=== PATIENT | male | born 1955 | race Caucasian/White ===

== ENCOUNTER 2016-10-08 00:52 | Observation (INO) | payer OTHER ==
--- NOTE | 2016-10-08 01:01 | EDPHY ---
[id number] HISTORY OF PRESENT ILLNESS: 61-year-old male presents to the emergency department by ambulance feeling extremely dizzy and lightheaded feeling like he is going to pass out. The patient was seen in [place] few days ago for spontaneous headache. He was diagnosed with an intracranial bleed. He was kept in the ICU for 2 days and then discharged home. He arrived home yesterday. He has had a continuous headache since that time. He feels that the headache today is a a bit better than it was a few days ago although still continues to have a headache. The patient states that he developed abrupt onset of feeling dizzy and lightheaded and felt like he was going to pass out. He then lost his balance and then fell hitting the right side of his head. He sustained a laceration to the right eyebrow. He continues to describe headache. Denies neck or back pain. Denies chest pain or difficulty breathing. Denies abdominal pain. Denies injury to upper or lower extremities. The patient has had chronic diarrhea since July. He has a history of colon cancer and is currently undergoing chemotherapy. His last infusion of chemotherapy was 2 weeks ago. He has had chronic diarrhea since his partial bowel resection over 2 months ago. REVIEW OF SYSTEMS: Constitutional: No fever, no chills. Eyes: No double or blurry vision. ENT: No sore throat. Respiratory: No cough, no shortness of breath. Cardiac: No chest pain. Gastrointestinal: Chronic diarrhea. No abdominal pain or vomiting. Genitourinary: No dysuria. Musculoskeletal: No neck or back pain. Skin: No rashes. Neurological: Headache as above, dizziness (Karine Santosrinlesly Moreno) Past Medical/Surgical History: Colon cancer with partial bowel resection currently on chemotherapy. Spontaneous intracranial bleed 5 days ago. History of anemia. (Dionne Santosa Tiffanie) Social History: (Justina Santos) Physical Exam: General Appearance: Alert, no distress. Mentating normally and answering questions appropriately. Eyes: Pupils equal and round. Extraocular motions are all intact. ENT: Mouth: Mucous membranes moist. Respiratory: No wheezing, rhonchi, or rales, lungs are clear to auscultation. Cardiovascular: Regular rate and rhythm. Gastrointestinal: Abdomen is soft and nontender, no masses, no rebound or guarding, bowel sounds normal. Well-healed midline surgical incision noted. Neurological: Alert and oriented x 3, cranial nerves II through XII grossly intact Skin: 2 cm right eyebrow laceration. Warm and dry, no rashes. Musculoskeletal: Nontender to palpate along the cervical, thoracic or lumbar spine. Neck is supple. Extremities: Full range of motion and no peripheral edema. Psychiatric: Patient is oriented X 3, there is no agitation. (Justina Santos) Constitutional: Initial Vital Signs Temperature (C) 37.0 C 10/08/16 00:52 Heart Rate 67 10/08/16 00:52 Respiratory Rate 18 10/08/16 00:52 Blood Pressure 144/71 H 10/08/16 00:52 O2 Sat (%) 93 10/08/16 00:52 O2 Delivery Mode Nasal Cannula O2 (L/minute) 2 Allergies/Adverse Reactions: Shellfish *RETIRED-06/17/12 [Shellfish] Allergy (Intermediate, Verified 06:57) Home Medications: Medication Instructions Recorded Acetaminophen/Codeine 300/30Mg 1 - 2 each PO Q4 PRN 10/08/16 [Tylenol #3 (*)] Diphenoxylate HCl/Atrop Sulf 1 tab PO QID PRN 10/08/16 [Lomotil Tab (*)] Multivitamins [Multivitamin (*)] 1 each PO DAILY 10/08/16 [place]-3 Fatty Acids [Fish Oil 1000 1,000 mg PO DAILY 10/08/16 mg (*)] Phenelzine Sulfate [Nardil 15 mg] 45 mg PO BID@08,12 10/08/16 levETIRAcetam [Keppra 500 mg (*)] 500 mg PO BID 10/08/16 traMADol [Ultram 50 mg (*)] 50 mg PO Q6 PRN 10/08/16 Medical Decision Making - Diagnostics Imaging: CT imaging of the brain reveals right frontal hemorrhage measuring 4.1 x 4.1 cm with surrounding edema. Including the edema it measures 6.6 x 6.6 cm. There is minimal shift, 6 mm. (Justina Santos) Procedures: Laceration repair. Verbal consent was obtained from the patient. The 1.5 cm laceration on the right eyebrow was anesthetized using 1% lidocaine with epinephrine. The wound was irrigated with saline, draped and explored to its base with a gloved finger. There were no deep structures involved. The wound was repaired with 6 0 Prolene, 5 sutures. The wound repair was simple. The procedure was performed by myself. (Justina Santos) ED Course/Re-evaluation: 61-year-old male presents to the emergency department after he felt dizzy and had a near syncopal episode, lost his balance and then fell hitting the right side of his face. He sustained a laceration to the right eyebrow which was repaired, see procedure note. Patient has a history of intracranial bleed to the right frontal lobe that was diagnosed just a few days ago in [place]. He was admitted to the ICU for 2 days and then discharged. They drove back home yesterday and today developed the above symptoms. CT imaging of the brain reveals right frontal bleed measuring 4.1 x 4.1 cm with surrounding edema and small shift, 6 mm of shift. I spoke with Dr. Boyd regarding this patient. He will be admitted to the ICU. I did speak with the [facility] physician and then made them aware that he will be kept at [facility] since he is unstable to transfer. I also spoke with the on-call hospitalist, Dr. Arce who will consult on this patient. (Justina Santos) Differential Diagnosis: Head injury including but not limited to concussion, skull fracture, intraparenchymal contusion, subarachnoid, subdural and epidural hematoma. Dizziness including but not limited to peripheral and central causes of vertigo , orthostatic causes including dehydration, and blood loss. (Justina Santos) - Data Points Laboratory Results: Laboratory Results 10/08/16 01:20 10/08/16 01:20 Medications Given: Discontinued Medications Sodium Chloride (Ns) 1,000 mls @ 0 mls/hr IV ONCE ONE PRN Reason: Wide Open Stop: 10/08/16 01:19 Last Admin: 10/08/16 01:21 Dose: 1,000 mls Levetiracetam 750 mg/ Sodium (Chloride) 107.5 mls @ 420 mls/hr IV BID AKANKSHA Stop: 04/06/17 02:59 Last Admin: 10/08/16 10:35 Dose: Not Given Potassium Chloride/Sodium Chloride (Ns W/ 20 Kcl/L) 1,000 mls @ 100 mls/hr IV CONT AKANKSHA Stop: 04/06/17 02:59 Last Admin: 10/08/16 03:21 Dose: 1,000 mls Sodium Chloride (Ns) 500 mls @ 0 mls/hr IV ONCE ONE PRN Reason: Wide Open Stop: 10/09/16 10:14 Last Admin: 10/09/16 10:52 Dose: 500 mls Levetiracetam (Keppra) 500 mg PO BID AKANKSHA Stop: 04/06/17 09:59 Last Admin: 10/08/16 11:58 Dose: Not Given Morphine Sulfate (Morphine) 1 - 5 mg IVP Q1HR PRN PRN Reason: Pain, Breakthrough Stop: 10/18/16 02:46 Last Admin: 10/08/16 09:27 Dose: 2 mg Morphine Sulfate (Morphine) 1 - 3 mg IVP Q3H PRN PRN Reason: Pain, Breakthrough Stop: 10/18/16 02:46 Last Admin: 10/08/16 12:58 Dose: 2 mg Morphine Sulfate (Morphine) 1 - 4 mg IVP Q2H PRN PRN Reason: Pain, Breakthrough Stop: 10/18/16 10:06 Last Admin: 10/09/16 00:39 Dose: 4 mg Oxycodone HCl (Oxycodone Ir) 5 mg PO Q4 PRN PRN Reason: Pain, Severe Able to Take PO Stop: 10/18/16 14:11 Last Admin: 10/08/16 14:33 Dose: 5 mg Departure - Departure Disposition: [facility] Acute Clinical Impression: Intracranial bleed, History of colon cancer Laceration of right eyebrow Qualifiers: Encounter type: initial encounter Qualifier Code: (S01.111A) Laceration without foreign body of right eyelid and periocular area, initial encounter Condition: Good
--- NOTE | 2016-10-08 01:08 | CPEKG ---
Heart Rate: 57 RR Interval: 1053 P-R Interval: 164 QRSD Interval: 100 QT Interval: 452 QTC Interval: 440 P [place]: 24 QRS [place]: -30 T Wave [place]: 26 EKG Severity - OTHERWISE NORMAL ECG - EKG Impression: SINUS RHYTHM EKG Impression: LEFT AXIS DEVIATION Electronically Signed By: Gil Thomas 08-Oct-2016 07:26:41
[2016-10-08] MEDS ORDERED: NS 1,000 ML IV ONE (01:18)
[2016-10-08 01:26] LABS: % IMMATURE GRANULYOCYTES 0.3 % (0.0-1.1); ABSOLUTE IMMATURE GRANULOCYTES 0.02 10^3/uL (0.00-0.10); ADD DIFF? NO; ADD MORPH? NO; ADD SCAN? NO; ATYPICAL LYMPHOCYTE FLAG 10 (0-99); FRAGMENT RBC FLAG 0 (0-99); HEMATOCRIT 35.7 % (40.0-51.0); HEMOGLOBIN 12.6 g/dL (13.7-17.5); LEFT SHIFT FLG 0 (0-99); LIPEMIA HEMOLYSIS FLAG 90 (0-99); MEAN CELL HEMOGLOBIN 31.3 pg (27.9-34.1); MEAN CELL HEMOGLOBIN CONCENTR. 35.3 g/dL (32.4-36.7); MEAN CELL VOLUME 88.6 fL (81.5-99.8); MEAN PLATELET VOLUME 8.9 fL (8.7-11.7); PLATELET CLUMPS FLAG 0 (0-99); PLATELET COUNT 185 10^3/uL (150-400); RED BLOOD CELL COUNT 4.03 10^6/uL (4.40-6.38); RED CELL DISTRIBUTION WIDTH 14.1 % (11.5-15.2)
[2016-10-08 01:50] LABS: ANION GAP 11 mEq/L (8-16); CALCIUM 8.9 mg/dL (8.5-10.4); CARBON DIOXIDE 27 mEq/l (22-31); CHLORIDE 102 mEq/L (97-110); CREATININE 0.7 mg/dL (0.7-1.3); GLOMERULAR FILTRATION RATE > 60; GLUCOSE 104 mg/dL (70-100); POTASSIUM 3.7 mEq/L (3.5-5.2); SODIUM 140 mEq/L (134-144)
[2016-10-08 02:00] LABS: TROPONIN I 0.013 ng/mL (0-0.034)
[2016-10-08] MEDS ORDERED: POLYETHYLENE GLYCOL 3350 17 GM PKT PO PRN (02:47)
[2016-10-08] MEDS ORDERED: LACTULOSE 20 GM/30 ML UDCUP PO PRN (02:47)
[2016-10-08] MEDS ORDERED: ACETAMINOPHEN 325 MG TAB PO PRN (02:47)
[2016-10-08] MEDS ORDERED: MAGNESIUM HYDROXIDE 30 ML UDCUP PO PRN (02:47)
[2016-10-08] MEDS ORDERED: niCARdipine/NACL 200 ML IV PRN (02:47)
[2016-10-08] MEDS ORDERED: BISACODYL 10 MG SUPP PR PRN (02:47)
[2016-10-08] MEDS ORDERED: NS W/ 20 KCl/L 1,000 ML IV SCH (03:00)
[2016-10-08] MEDS: levETIRAcetam 750 MG in NS 100 ML IV SCH ×2 (03:30→10:35)
--- NOTE | 2016-10-08 07:22 | PDGENHP ---
History and Physical - Chief Complaint fall with head trauma - History of Present Illness Patient is a 61-year-old male with history of stage III colon cancer (s/p resection, underwent 1st chemo infusion on 09/22) and recent hospitalization at outside hospital last week for spontaneous intracranial hemorrhage, discharged on 10/04, who presents to the ED after a fall. Patient states he had his stood up to walk to the bathroom, upon standing he felt dizzy, lost his balance and fell. He reports fall resulted in head trauma, but did not lose consciousness, he remembers entire event, it event was witnessed by , no seizure activity noted, no urinary incontinence or tongue biting. EMS was called and he was transported to the ED. Upon arrival to the ED patient was afebrile hemodynamically stable. Labs were largely unremarkable. CT head revealed frontal lobe intracranial hemorrhage, unable to compare to outside hospital's previous CT, but hemorrhage had some surrounding vasogenic edema. Neurosurgery was consulted and patient was admitted under the neurosurgical service, with hospitalist following as consult. Patient denies any recent fevers, chills, cough, chest pain, palpitations, abdominal pain, nausea, vomiting, dysuria. He does have chronic diarrhea since bowel resection in 07/2016, and slightly decreased appetite, p.o. intake recently. History Information - Allergies/Home Medication List Allergies/Adverse Reactions: Shellfish *RETIRED-06/17/12 [Shellfish] Allergy (Intermediate, Verified 06:57) Home Medications: Keppra 10/08/16 [Last Taken Unknown] Lomotil Tab (*) 10/08/16 [Last Taken Unknown] Nardil 10/08/16 [Last Taken Unknown] Tylenol 10/08/16 [Last Taken Unknown] traMADol 10/08/16 [Last Taken Unknown] I have personally reviewed and updated: family history, medical history, social history, surgical history - Past Medical History Additional medical history: colon cancer, stage III: dx 04/2016, underwent bowel resection, initiated on chemo on 09/22/2016. spontaneous intracranial hemorrhage (09/2016) - Surgical History Additional surgical history: bowel resection. hip fracture repair - Family History Additional family history: F: colon cancer, dx 88. 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 Review of Systems ROS: 10pt was reviewed & negative except for what was stated in HPI & below Physical Exam Temp Pulse Resp BP Pulse Ox 37.0 C 52 L 16 127/90 H 95 10/08/16 03:00 10/08/16 06:00 10/08/16 06:00 10/08/16 06:00 10/08/16 06:00 O2 (L/minute) 2 Constitutional: no apparent distress, appears nourished, not in pain Eyes: PERRL, anicteric sclera, EOMI Ears, Nose, Mouth, Throat: hearing normal, ears appear normal, dry mucous membranes Cardiovascular: regular rate and rhythym, no murmur, rub, or gallop, pulses symmetric bilaterally, No JVD, No edema Peripheral Pulses: 2+: dorsalis-pedis (R), dorsalis-pedis (L) Respiratory: no respiratory distress, no rales or rhonchi, clear to auscultation Gastrointestinal: normoactive bowel sounds, soft, non-tender abdomen, no palpable masses Genitourinary: no bladder fullness, no bladder tenderness Skin: warm, normal color, no fluctuance, abrasion (above R eye), No mottled Musculoskeletal: full muscle strength, no muscle tenderness, normal joint ROM, no joint effusions Neurologic: AAOx3, sensation intact bilaterally, facial droop, No weakness, No numbness, No pronator drift Psychiatric: interacting appropriately, not anxious, not encephalopathic, thought process linear Lab Data & Imaging Review 10/08/16 08:51 10/08/16 01:20 WBC 6.07 10^3/uL (3.80-9.50) 10/08/16 01:20 RBC 4.03 10^6/uL (4.40-6.38) L 10/08/16 01:20 Hgb 12.6 g/dL (13.7-17.5) L 10/08/16 01:20 Hct 35.7 % (40.0-51.0) L 10/08/16 01:20 MCV 88.6 fL (81.5-99.8) 10/08/16 01:20 MCH 31.3 pg (27.9-34.1) 10/08/16 01:20 MCHC 35.3 g/dL (32.4-36.7) 10/08/16 01:20 RDW 14.1 % (11.5-15.2) 10/08/16 01:20 Plt Count 185 10^3/uL (150-400) 10/08/16 01:20 MPV 8.9 fL (8.7-11.7) 10/08/16 01:20 Neut % (Auto) 69.3 % (39.3-74.2) 10/08/16 01:20 Lymph % (Auto) 14.8 % (15.0-45.0) L 10/08/16 01:20 [place] % (Auto) 12.0 % (4.5-13.0) 10/08/16 01:20 Eos % (Auto) 3.1 % (0.6-7.6) 10/08/16 01:20 Baso % (Auto) 0.5 % (0.3-1.7) 10/08/16 01:20 Nucleat RBC Rel Count 0.0 % (0.0-0.2) 10/08/16 01:20 Absolute Neuts (auto) 4.20 10^3/uL (1.70-6.50) 10/08/16 01:20 Absolute Lymphs (auto) 0.90 10^3/uL (1.00-3.00) L 10/08/16 01:20 Absolute Monos (auto) 0.73 10^3/uL (0.30-0.80) 10/08/16 01:20 Absolute Eos (auto) 0.19 10^3/uL (0.03-0.40) 10/08/16 01:20 Absolute Basos (auto) 0.03 10^3/uL (0.02-0.10) 10/08/16 01:20 Absolute Nucleated RBC 0.00 10^3/uL (0-0.01) 10/08/16 01:20 Immature Gran % 0.3 % (0.0-1.1) 10/08/16 01:20 Immature Gran # 0.02 10^3/uL (0.00-0.10) 10/08/16 01:20 Sodium 140 mEq/L (134-144) 10/08/16 01:20 Potassium 3.7 mEq/L (3.5-5.2) 10/08/16 01:20 Chloride 102 mEq/L (97-110) 10/08/16 01:20 Carbon Dioxide 27 mEq/l (22-31) 10/08/16 01:20 Anion Gap 11 mEq/L (8-16) 10/08/16 01:20 BUN 9 mg/dL (7-23) 10/08/16 01:20 Creatinine 0.7 mg/dL (0.7-1.3) 10/08/16 01:20 Estimated GFR > 60 10/08/16 01:20 Glucose 104 mg/dL (70-100) H 10/08/16 01:20 Calcium 8.9 mg/dL (8.5-10.4) 10/08/16 01:20 Troponin I 0.013 ng/mL (0-0.034) 10/08/16 01:20 Visualized and Interpreted imaging results: Yes Interpretation: CT head: R acute/subacute intracranial hemorrhage, with surrounding edema and slight midline shift Visualized and Interpreted EKG results: Yes EKG Interpretation: Positive for: normal sinsus rhythm (no st/t wave abnormalities) Assessment & Plan Assessment: Patient is a 59-year-old male with history of colon cancer, undergoing chemo therapy, recent hospitalization for spontaneous intracranial hemorrhage, who presented to the ED with fall with head trauma. Plan: # fall with head trauma Pt's description of event appears consistent with an orthostatic episode that did not result in LOC. He also denies any associated cardiac symptoms and EKG does not show any significant arrhythmia/abnormality. Pt given IVF hydration in ED and BP's have remained stable. - trend troponins to r/o acs - repeat EKG - check TTE to r/o cardiac structural abnormality # recent spontaneous intracranial hemorrhage Pt largely neurologically intact and reports improvement in [place]ER[place]. Will need to obtain OSH radiology copy of CT if possible to compare ICH post-fall. Will defer management to neurosx. - seizure prophylaxis - neuro checks - BP control - monitor plt, coags # colon ca Pt underwent first infusion treatment 2 weeks ago. Follows with Dr. Deneen Andino of [facility]. # dispo: admit to inpt service for > 2MN stay, hospitalist service following as consult # full code
--- NOTE | 2016-10-08 08:34 | CT ---
CT Scan of the Head (Without Contrast) Clinical Indications: 61-year-old male inpatient admitted this morning with a right frontal lobe intr aparenchymal bleed, presenting for followup. Technique: Axial CT images were acquired from the foramen magnum through the skull vertex, without i ntravenous contrast. Soft tissue, subdural, and bone windows were reviewed on the computer workstati on. Images were reformatted at 5.00 and 1.50 mm increments, and are reformatted in sagittal and moon nal planes. DFOV is 26.1 cm. Dose reduction techniques were utilized. Comparison Study: Unenhanced CT scan of the brain from early this morning at 1:36 a.m. Findings: Again, there is an acute subacute intraparenchymal hemorrhage involving the right frontal l obe, currently measuring 3.7 x 4.4 cm (transverse diameter) x 2.9 cm (cephalocaudal diameter), and by my retrospective measurement this measured 4.4 x 4.1 x 2.8 cm. There is some surrounding vasogenic e neris, as well as a small amount of adjacent subarachnoid hemorrhage. There is effacement of the ipsil ateral sulci and the anterior aspect of the right frontal horn. There is no contralateral hemispheric bleed. There is 4.5 mm of [id number] subfalcine shift, also stable. The brainstem and cerebellum are normal. Old nasal fractures are apparent. Trace leftward nasal septal deviation is seen. The para nasal sinuses and mastoids are patent. The craniocervical junction, sella turcica, pineal gland, and the orbits are unremarkable. Impression: There has been no significant interval change since 1:36 a.m.
[2016-10-08 08:56] LABS: % IMMATURE GRANULYOCYTES 0.4 % (0.0-1.1); ABSOLUTE IMMATURE GRANULOCYTES 0.02 10^3/uL (0.00-0.10); ADD DIFF? NO; ADD MORPH? NO; ADD SCAN? NO; ATYPICAL LYMPHOCYTE FLAG 10 (0-99); FRAGMENT RBC FLAG 0 (0-99); HEMATOCRIT 37.6 % (40.0-51.0); HEMOGLOBIN 12.8 g/dL (13.7-17.5); LEFT SHIFT FLG 0 (0-99); LIPEMIA HEMOLYSIS FLAG 90 (0-99); MEAN CELL HEMOGLOBIN 30.3 pg (27.9-34.1); MEAN CELL VOLUME 89.1 fL (81.5-99.8); MEAN PLATELET VOLUME 9.1 fL (8.7-11.7); PLATELET CLUMPS FLAG 0 (0-99); PLATELET COUNT 196 10^3/uL (150-400); RED BLOOD CELL COUNT 4.22 10^6/uL (4.40-6.38); RED CELL DISTRIBUTION WIDTH 14.1 % (11.5-15.2)
[2016-10-08] MEDS: ONDANSETRON 4 MG/2 ML VIAL IVP PRN ×2 (08:59→14:33)
[2016-10-08] MEDS: FAMOTIDINE 20 MG/NACL 50 ML IV SCH ×2 (08:59→22:01)
[2016-10-08] MEDS: SENNOSIDES/DOCUSATE SODIUM TAB PO SCH ×2 (08:59→22:01)
--- NOTE | 2016-10-08 09:19 | GHP ---
[f rep st] HISTORY AND PHYSICAL DATE OF ADMISSION: 10/08/2016 REASON FOR ADMISSION: Right frontal intraparenchymal hemorrhage, status post recent hospitalization and no associated trauma. HISTORY OF PRESENT ILLNESS: The patient is an otherwise fairly healthy 61-year- old gentleman with known history of stage III colon cancer, status post resection and chemotherapy, who was in [place] when he had some difficulty with dizziness with some hypotension. He was taken to the emergency department in [facility] where he was admitted for 2 days and states that he had several head scans and after doing quite well, was discharged home. The patient lives in [place], [place] and was here in the restroom when he suddenly lost consciousness and hit the right frontal aspect of his head. He remembers the entire event which was witnessed by his . There was no associated seizure activity and no urinary or bowel incontinence. EMS was called and he was transported to [facility] emergency department for evaluation. The patient was stable here and underwent a head CT without contrast which demonstrated a large right frontal intraparenchymal hemorrhage with surrounding vasogenic edema. The patient was doing quite well and therefore was admitted to the intensive care unit for further monitoring. This morning, the patient states his headache is slightly improved. He denies any numbness, tingling, pain or weakness of the upper or lower extremities. No loss of bowel or bladder function. No history of head trauma preceding the first event which was a spontaneous hemorrhage according to the patient. It is uncertain as to whether or not he underwent any type of angiograms or further imaging at the outside hospital given his history of colon cancer and possible underlying etiologies. ALLERGIES: Shellfish. MEDICATIONS: Prior to admission: 1. Keppra. 2. Lomotil tab. 3. Tylenol. 4. Tramadol. PAST MEDICAL HISTORY: 1. History of colon cancer, stage III, diagnosed in April 2017, status post bowel resection and he initiated chemotherapy September 22, 2016. 2. Spontaneous intracranial hemorrhage on the September, for which he was hospitalized for 2 days in [place]. PAST SURGICAL HISTORY: 1. History of bowel resection. 2. History of hip fracture repair. FAMILY HISTORY: Positive for colon cancer, CLL. Denies any intracranial aneurysms or previous history of intracranial hemorrhages or strokes in his family. SOCIAL HISTORY: The patient denies tobacco or alcohol use. No other illicit drug use. He lives with his and is a retired [employer] employee. 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 REVIEW OF SYSTEMS: A complete 10-point review of systems was reviewed from the patient's intake form and reviewed by myself. Significant only for those as noted above in the HPI. PHYSICAL EXAMINATION: VITAL SIGNS: Blood pressure is 127/90, heart rate is 52 , respiratory rate is 16, satting 95% currently on room air, 37.0 is his temperature. GENERAL: The patient is lying in the bed. He is in no acute distress. He is quite pleasant and cooperative with the examination. His affect is appropriate. He has a small contusion noted on the right lateral aspect of his eyebrow which has a Band-Aid and some slight swelling. EYES: Pupils are equal, round and reactive to light bilaterally. His extraocular movements are intact. His sclerae are anicteric. EARS, NOSE AND THROAT: His oropharynx is moist. He has normal hearing to light finger scratch bilaterally. CARDIOVASCULAR AND PULMONARY: Deferred. MOTOR: He has 5/5 strength in bilateral upper extremities including bilateral alto singer strength, biceps, triceps, deltoids, bilateral hip flexion, plantar and dorsiflexion, EHL bilaterally. Sensory exam is intact to sensation to light touch in all major dermatomes of the bilateral upper and lower extremities throughout. OTHER: Reflexes are 1+ at the bilateral brachioradialis and patella. Negative Cárdenas' s. No Babinski. NEUROLOGIC: Cranial nerves 2 through 12 are otherwise intact. His face is symmetric. Tongue protrudes midline. Uvula and palate elevate symmetrically. His facial sensation is intact. He has intact hearing to light finger scratch bilaterally. Shoulder shrug is symmetric. MEDICAL DECISION MAKING: The patient underwent laboratory work where a white count is 6.07, hematocrit is 35.7. Sodium 140, potassium 3.7, BUN 9, creatinine 0.7. His platelets are 185. Head CT without contrast completed on the October at 12:58 a.m. and again at 5 a.m. reviewed by myself at the [facility] PACS system demonstrates a right frontal intraparenchymal hemorrhage with hypodensity likely consistent with vasogenic edema. There are no associated skull fractures. The hematoma is approximately 4.1 x 4.1 in maximum dimensions with approximately 6 mm of shift from [id number]. ASSESSMENT AND PLAN: The patient is a 61-year-old gentleman with a known history of colon cancer, stage III, who had a spontaneous intraparenchymal hemorrhage for which he was hospitalized for 2 days and then presented after a mechanical fall. At this point, the patient has [address] which demonstrate a 4.1 cm lesion within the right frontal lobe with some surrounding vasogenic edema consistent with an old hematoma. There is approximately 6 mm of midline shift. The patient is otherwise doing neurologically quite well this morning. We will try to obtain the records from the outside facility to see if an angiogram or MRI have been completed given his underlying history of cancer and to ensure that there are no vascular malformations. Will continue to closely monitor him in the step-down unit for the next 24 hours and keep him on Keppra for seizure prophylaxis. Will get PT and OT to work with the patient and let him eat. I discussed this with the patient and he is in agreement with this plan. All questions were answered. /[id number]/MODL MTDD
[2016-10-08 09:22] LABS: ANION GAP 11 mEq/L (8-16); CALCIUM 8.9 mg/dL (8.5-10.4); CARBON DIOXIDE 28 mEq/l (22-31); CHLORIDE 100 mEq/L (97-110); CREATININE 0.7 mg/dL (0.7-1.3); GLOMERULAR FILTRATION RATE > 60; GLUCOSE 95 mg/dL (70-100); MAGNESIUM 1.8 mg/dL (1.6-2.3); POTASSIUM 3.9 mEq/L (3.5-5.2); SODIUM 139 mEq/L (134-144)
[2016-10-08 09:34] LABS: TROPONIN I 0.013 ng/mL (0-0.034)
[2016-10-08] MEDS ORDERED: traMADol 50 MG TAB PO PRN (09:59)
[2016-10-08] MEDS ORDERED: levETIRAcetam 500 MG TAB PO SCH (10:00)
[2016-10-08] MEDS: levETIRAcetam 500 MG TAB PO SCH ×2 (10:17→22:01)
[2016-10-08] MEDS: PHENELZINE SULFATE PO SCH ×2 (10:17→11:45)
[2016-10-08] MEDS: MULTIVITAMINS 1 EACH TAB PO SCH (10:22)
[2016-10-08] MEDS: OMEGA-3 FATTY ACIDS 1,000 MG CAP PO SCH (10:22)
[2016-10-08 10:35] LABS: INR 1.06 (0.83-1.16); PROTIME(PATIENT) 13.7 SEC (12.0-15.0)
[2016-10-08 10:37] LABS: APTT 30.8 SEC (23.0-38.0)
--- NOTE | 2016-10-08 10:42 | ECHO ---
[id number] + + [address] : : [place] [address] : : [phone] + + Adult Echocardiographic Report + ------+ :Name: SUJEY MAZARIEGOS WStudy Date: 10/08/2016 08:15 AM : : Hospital Admission Number: [id number] Locatio n: 241: :: 1955 Gender: Male Height: 75 in : :Age: 61 yrs Race: WH Weight: 230 lb : :Reason For Study: Fall/R/O cardiac etiology : : BSA: 2.3 meters 2 : + ------+ MMode/2D Measurements & Calculations IVSd: 0.90 cm LVIDd: 5.7 cm FS: 48.8 % Ao root diam: LVPWd: 0.81 cm LVIDs: 2.9 cm EDV(Teich): 4.8 cm 161.0 ml LA dimension: ESV(Teich): 4.6 cm 33.0 ml EF(Teich): 79.5 % LVLd ap4: 9.7 cm SV(MOD-sp4): EDV(MOD-sp4): 98.0 ml 137.0 ml LVLs ap4: 8.1 cm ESV(MOD-sp4): 39.0 ml EF(MOD-sp4): 71.5 % Normal Measurement Values: + + :LVIDd (3.5-5.7cm) IVSd (0.6-1.1cm) LVPWd (0.6-1.1cm) Aortic Root (2.0-3.7cm)Left Atrium (1.5-4.0cm): :LV Vol(d) (76-115ml) LV Vol(s) (29-48ml) Ejec Fraction (50-65%)PV Misael (0.6- 1.2m/s) TV Misael (0.4-1.0m/s) : :MV E Misael (0.8-1.0m/s)MV A Misael (0.3-1.0m/s)LVOT Misael (0.7-1.2m/s) Asc Ao Misael ( 0.9-1.8m/s) : + + Doppler Measurements & Calculations MV E max misael: 86.4 cm/sec Ao V2 max: 128.6 cm/sec MV A max misael: 64.7 cm/sec Ao max P.6 mmHg MV E/A: 1.3 Left Ventricle The left ventricle is normal in size and function. There is normal left ventricular wall thickness. Left ventricular systolic function is normal. Ejection Fraction = 65-70%. There is Doppler evidence for diastolic dysfunction. No regional wall motion abnormalities noted. Right Ventricle The right ventricle is normal in size and function. Atria The left atrium is mildly dilated. The right atrium is mildly dilated. The interatrial septum is intact with no evidence for an atrial septal defect. Mitral Valve The mitral valve is normal in structure and function. There is no evidence of mitral valve prolapse. There is no mitral valve stenosis. There is mild mitral regurgitation. Tricuspid Valve Normal tricuspid valve. There is trace tricuspid regurgitation. Aortic Valve The aortic valve is trileaflet. The aortic valve opens well. There is no aortic stenosis. Trace to mild aortic regurgitation. Pulmonic Valve The pulmonic valve is normal in structure and function. Trace pulmonic valvular regurgitation. Great Vessels The aortic root is normal size. Pericardium/Pleural There is no pericardial effusion. Conclusion A complete two-dimensional transthoracic echocardiogram was performed (2D, M-mode, Doppler and color flow Doppler). The left ventricle is normal in size and function. Left ventricular systolic function is normal. Ejection Fraction = 65-70%. There is Doppler evidence for diastolic dysfunction with elevated filling pressures. The left atrium is mildly dilated. The right atrium is mildly dilated. There is mild mitral regurgitation. There is trace tricuspid regurgitation. Trace to mild aortic regurgitation. Trace pulmonic valvular regurgitation. Final Reading Physician: Curly P Iliana Alvarado signed on 10/08/2016 10:41 AM Ordering Physician: Soledad Arce Performed By: Tammie Boateng RDCS
--- NOTE | 2016-10-08 12:36 | HOSPPROG ---
Hospitalist Progress Note Assessment/Plan: S: denies dizziness. C/o right-sided GERARD where he hit head A&P 1. Intracranial hemorrhage -unclear of initial cause -in ICU for serial neuro checks -NSGY trying to obtain imaging from OSH to compare 2. GERARD -2/2 fall. PRN IV opioids 3. Depression -cont Nardil 4.Colon cancer -s/p resection -chemo initiated Sep 2016; followed at [facility] We will cont to follow along Objective: Vital Signs Temp Pulse Resp BP Pulse Ox 37.0 C 58 L 13 138/96 H 96 10/08/16 03:00 10/08/16 10:00 10/08/16 10:00 10/08/16 10:00 10/08/16 10:00 Laboratory Results 10/08/16 08:51 10/08/16 08:51 10/07/16 10/08/16 10/09/16 05:59 05:59 05:59 Intake Total 1000 Output Total 575 1000 Balance 425 -1000 PT 13.7 SEC (12.0-15.0) 10/08/16 08:51 INR 1.06 (0.83-1.16) 10/08/16 08:51 ICD10 Worksheet Patient Problems: Problems Problem Status Diagnosed History of colon cancer Acute Intracranial bleed Acute Laceration of right eyebrow Acute
--- NOTE | 2016-10-08 12:49 | GCON ---
[f rep st] CONSULTATION DATE OF CONSULTATION: 10/08/2016 REQUESTING PHYSICIAN: Dr. Boyd. CHIEF COMPLAINT: Dizziness. HISTORY OF PRESENT ILLNESS: This 61-year-old male was in [place], [place] when he developed some dizziness and was found to be hypotensive. He was seen in the emergency room and admitted for a pproximately 2 days. He had head scans that apparently showed a right frontal intraparenchymal hemor rhage. He was observed for 2 days and discharged home. Today, he fell in the bathroom. He hit the right front of his head. There was no loss of consciousness, and he remembers the event as does his , who is present. There were no visual changes, and he has had no problems moving his arms or hi s legs. A CT scan in the emergency room showed a large right frontal intraparenchymal hemorrhage. T he patient continues to have a headache, but otherwise he is doing well. There has been no fever, sw eats, or chills. He denies orthopnea, paroxysmal nocturnal dyspnea or pedal edema. He has had no pr oblems with bowel or bladder function. When he was in [place], he had no trauma. PAST MEDICAL HISTORY: Colon cancer diagnosed in April of 2017, and he was treated with a bowel resect ion and chemotherapy. ALLERGIES: Shellfish. FAMILY HISTORY: Colon cancer and chronic lymphocytic leukemia have been prevalent. SOCIAL HISTORY: He is retired from [employer] and now works for a local [employer]. He has never smoked tobacc o, used excessive alcohol or any illicit drugs. REVIEW OF SYSTEMS: Review of systems x10 points is, otherwise, noncontributory except as included in above. PHYSICAL EXAMINATION: GENERAL: He has a mild headache, but is otherwise comfortable and able to ans wer questions. VITAL SIGNS: The blood pressure is 138/96 with a pulse of 58, respiratory rate of 13 and oxygen saturation 96% on room air, and he is afebrile. SKIN: Normal. HEAD: Without external evidence of trauma. EYES: PERRL. Fundi not visualized. EARS: Canals clear. NOSE: Without septa l deviation or polyps. MOUTH and PHARYNX: Clear. NECK: Supple without adenopathy. CHEST: Clear to auscultation and percussion. HEART: PMI 5th intercostal space, midclavicular line. S1 and S2 ar e normal. There is no S3-S4 murmur. ABDOMEN: Soft, without organomegaly or masses. No bruits are heard. EXTREMITIES: Full range of motion without clubbing, cyanosis, or peripheral edema. NEUROLOG IC: Per the neurosurgeon's database, a head CT scan was done early this morning, which shows no sign ificant interval change compared to a CT scan of the head done earlier with an acute intraparenchymal hemorrhage in the right frontal lobe. IMPRESSION: Intercerebral bleed. The disks and interpretations from his films in [place] will be arriving here and be able to be compared by Dr. Boyd. In the meantime, he will be on Pepcid for PV prophylaxis. Lovenox is contraindicated. /[id number]/MODL
[2016-10-08] MEDS ORDERED: oxyCODONE IR 5 MG TAB PO PRN (14:12)
--- NOTE | 2016-10-08 15:38 | CT ---
CT Brain (Without Contrast) at 0136 hours History: History of recent right frontal lobe hemorrhage, worsening headache. Comparison: CT brain of February 2011. No recent imaging. Technique: Axial computed tomographic images of the brain without contrast. Dose reduction techniques were utilized. Findings: Mild diffuse atrophy. Right frontal lobe acute/subacute hyperdense intraperitoneal hemorrh age measuring 4.1 x 4.1 cm with surrounding edema measuring 4.4 x 4.1 cm. There is resulting right fr ontal lobe edema and mass effect with midline shift toward the left, left subfalcine herniation 6 mm. Subarachnoid hemorrhage right frontal convexity. Minimal right temporal subdural hematoma versus sub arachnoid hemorrhage noted. No epidural hematoma. No evidence of acute skull fracture. Old nasal bone fractures. No fluid in the paranasal sinuses or mastoid air cells. Impression: 1. Acute/subacute hyperdense hemorrhage right frontal lobe measuring 4.1 x 4.1 cm with surrounding ed nirav and mild leftward subfalcine herniation. 2. Atrophy without hydrocephalus. 3. Right frontal subarachnoid hemorrhage and possible minimal right temporal subdural hematoma versus subarachnoid hemorrhage. Findings and recommendations discussed with Emergency Department physician, Dr. Thomas at 0145 hours today. Final report concurs with initial preliminary interpretation.
[2016-10-09 05:21] LABS: POTASSIUM 4.4 mEq/L (3.5-5.2)
[2016-10-09 05:22] LABS: ANION GAP 9 mEq/L (8-16); CALCIUM 8.9 mg/dL (8.5-10.4); CARBON DIOXIDE 28 mEq/l (22-31); CHLORIDE 99 mEq/L (97-110); CREATININE 0.7 mg/dL (0.7-1.3); GLOMERULAR FILTRATION RATE > 60; GLUCOSE 115 mg/dL (70-100); SODIUM 136 mEq/L (134-144)
[2016-10-09] MEDS: MULTIVITAMINS 1 EACH TAB PO SCH (07:59)
[2016-10-09] MEDS: OMEGA-3 FATTY ACIDS 1,000 MG CAP PO SCH (07:59)
[2016-10-09] MEDS: FAMOTIDINE 20 MG/NACL 50 ML IV SCH (07:59)
[2016-10-09] MEDS: SENNOSIDES/DOCUSATE SODIUM TAB PO SCH (08:00)
[2016-10-09] MEDS: levETIRAcetam 500 MG TAB PO SCH (08:01)
[2016-10-09] MEDS: PHENELZINE SULFATE PO SCH ×2 (08:02→12:02)
[2016-10-09 10:05] VITALS: TEMP 97.7
[2016-10-09] MEDS ORDERED: NS 500 ML IV ONE (10:13)
--- NOTE | 2016-10-09 10:19 | NEUSURGPN ---
Assessment/Plan: 61y/o male with known Stage III colon cancer with spontaneous right frontal IPH -Doing well today -Blood pressure improved this morning -Cervical CTA pending - Appreciate Medicine management -Okay to transfer to floor when cleared by medicine -Okay for Q4 hour neuro checks. Please notify NS with any change in neuro/motor exam Subjective: Headache improved, denies any dizziness, nausea Objective: NAD A&Ox3 MAEx4 5/5 and equal in BUE and BLE - Physician Discussed Patient with : [facility] Physical Exam - Vitals, I&O, Labs I and O 10/08/16 10/09/16 10/10/16 05:59 05:59 05:59 Intake Total 1000 3654 Output Total 575 2375 Balance 425 1279 Weight 104.326 kg Intake: Oral (ml) 1150 IV Intake (ml) 50 IV Infused (ml) 1000 2454 NS W/ 20 KCl/L 1,000 ml @ 2454 100 mls/hr IV CONT AKANKSHA Rx#:[id number] Output: Urine (ml) 575 2375 Urinal 575 2375 Vital Signs Temp Pulse Resp BP Pulse Ox 36.5 C 68 15 105/74 94 10/09/16 10:00 10/09/16 10:00 10/09/16 10:00 10/09/16 10:00 10/09/16 10:00 Laboratory Results 10/08/16 08:51 10/09/16 04:58 ICD10 Worksheet Patient Problems: Problems Problem Status Diagnosed History of colon cancer Acute Intracranial bleed Acute Laceration of right eyebrow Acute
[2016-10-09] MEDS ORDERED: IOPAMIDOL (ISOVUE 370) 100 ML BTL IV ONE (10:21)
--- NOTE | 2016-10-09 11:27 | PDINTPN ---
Hvac Designer Progress Note Assessment/Plan: Assessment: #KYM, began in [place], then readmitted here. The bleed appears stable on CT but he still has a headache Plan: CTA today, discharge per RADHA Braxton He is eating and drinking 10/09/16 11:25 Objective: Vital Signs Temp Pulse Resp BP Pulse Ox 36.5 C 68 15 105/74 94 10/09/16 10:00 10/09/16 10:00 10/09/16 10:00 10/09/16 10:00 10/09/16 10:00 Laboratory Results 10/08/16 08:51 10/09/16 04:58 10/08/16 10/09/16 10/10/16 05:59 05:59 05:59 Intake Total 1000 3654 Output Total 575 2375 Balance 425 1279 PT 13.7 SEC (12.0-15.0) 10/08/16 08:51 INR 1.06 (0.83-1.16) 10/08/16 08:51 Physical Exam - Physical Exam General Appearance: alert EENT: normal ENT inspection Neck: non-tender Respiratory: lungs clear Cardiac/Chest: regular rate, rhythm Abdomen: non-tender, soft Back: Normal inspection Skin: warm/dry Lymphatic: no adenopathy Extremities: non-tender, No pedal edema Neuro/Psych: alert ICD10 Worksheet Patient Problems: Problems Problem Status Diagnosed History of colon cancer Acute Intracranial bleed Acute Laceration of right eyebrow Acute
--- NOTE | 2016-10-09 11:27 | CT ---
CT Angiography of the Head Clinical Indications: Right frontal hemorrhage ,R29.818 Neurological changes strongly suggesting intr acerebral aneurysm. Technique: During automated power injection of 85 mL of Isovue-370, thinly collimated spiral (volume tric) multidetector helical imaging was performed through the head. Independent three-dimensional Dualog workstation was used for additional manipulations of images by the radiologist. Dose reduction techniques were utilized. Findings: The [place] and its branches are well visualized. The right frontal hemorrhage is bland, without evidence of a feeding arterial vessel, abnormal draining vein or internal abnormal v essels. It is associated with blunting of the anterior horn of the right lateral ventricle and approx imately 4 mm of right to left shift. There is no interventricular hemorrhage. The ambient cistern rem ains widely patent. There is no obvious adjacent or remote vasospasm. 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 It projects superiorly and inferiorly above the main trunk a nd has both an anterior temporal and a tiny superior branch emanating from it. The aneurysm measures approximately 2.4 mm diameter maximally. The distal internal carotid arteries, A1, A2 and anterior cerebral arteries are normal as is the ant erior communicating artery. The left M1, M2 and middle cerebral trifurcations are normal. Neither pos terior indicating artery is identified. There is an infundibulum of the basilar tip, out of which both posterior cerebral arteries and superi or cerebellar arteries have their normal sized origins. Both posterior inferior cerebellar arteries h ave normal origins off the distal vertebral arteries, which are codominant. Impression: 1. Right frontal hemorrhage is bland. It is not typically changed in size since yesterday . 2. 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 3. Infundibulum basilar tip.
[2016-10-09 12:12] VITALS: BP 131/99; PULSE 68; RESP 18; O2SAT 96
--- NOTE | 2016-10-09 15:28 | PDDCSUM ---
Discharge Summary Discharge Summary: DISCHARGE SUMMARY FOLLOW-UP ITEMS: Repeat creatinine BUN and lytes in the outpatient setting through primary care provider or oncologist. DATE OF ADMISSION: 10/08/2016 DATE OF DISCHARGE: 10/09/2016 DISCHARGE DIAGNOSES: 1. Acute intracranial hemorrhage 2. Headache 3. Orthostasis 4. Chronic colon cancer CONSULTATIONS: Neurosurgery by Dr. Boyd, critical care PROCEDURES / IMAGING: CT angiogram demonstrating stable area of right frontal hemorrhage with small mid right MCA trifurcation aneurysm CHIEF COMPLAINT: Headache SUBJECTIVE: Headache free, ambulating without orthostatic symptoms PHYSICAL EXAM ON DISCHARGE: Negative orthostatics, systolic blood pressure 121/50, heart rate in the 50s, afebrile overnight, cranial nerves 2-12 are intact and tested, has chronic left mouth asymmetry, motor strength 5/5 bilateral upper and lower extremities, sensation intact bilaterally LABS ON DISCHARGE: Creatinine BUN and lytes all normal HOSPITAL COURSE BY PROBLEM: 1. Acute intracranial hemorrhage. The patient presented with a headache in the setting of right frontal intracranial hemorrhage which remained stable on repeat head imaging and did not evolve into any neurologic symptoms on neuro checks. Patient was seen in consultation by Neurosurgery, a CT angiogram demonstrated a bland right frontal hemorrhage with a small mid right MCA trifurcation aneurysm. Neurosurgery did not feel like further surgical intervention was indicated and they recommended that she follow up with either neurosurgery at [facility] or with Dr. Boyd in 4 weeks. 2. Headache. Acute headache, most likely secondary to intracranial hemorrhage, as well as abrasion, stabilized with as needed oral morphine and provided with a script for oral morphine moving forward as well as Senokot S as needed if constipation occurs. 3. Orthostasis. The patient did have positive orthostatics and this may have been a contributing cause to his original fall. He received 500 cc of normal saline as well as encouraged oral intake and his orthostatics normalized. We recommended ongoing oral hydration moving forward and repeat creatinine BUN and lytes in the outpatient setting. Because the patient's orthostasis is most likely hypovolemia from diarrhea and the patient's diarrhea has resolved in the setting of oral opiates. 4. Chronic colon cancer. Patient has recently undergone partial colectomy with reanastomosis and should follow up with [facility] oncology. DISCHARGE MEDICATIONS: Please see official discharge medication reconciliation sheet in chart , as needed morphine immediate release 15 mg 30 tabs prescribed, Senokot S twice daily as needed, discontinuation of the Ultram. DISCHARGE INSTRUCTIONS: Patient should follow up with [facility] oncology as well as primary care and neurosurgery in 4 weeks. TIME SPENT: Greater than 30 minutes were spent on direct patient care, as well as discharge planning and preparation. Patient's condition stabilized and improved much more rapidly than originally anticipated by our admitting provider, Dr. Arce. The patient was originally admitted for reasonable medical necessity including acute intracranial hemorrhage and his situation was highly efficient expeditiously treated by Neurosurgery, hospitalist, nursing staff, powder loader. The patient is currently clinically stable for discharge home and is appropriate for discharge at this time.
== END 2016-10-09 16:18 | disposition home or self-care (01) ==
LOC: EDUNIT# → OBSVTOIN 02:08 → INTOOBSV 02:08 → F2N 02:48
PROVIDERS: ADMIT Neurological Surgery; ATTEND Neurological Surgery
PROC: 08QNXZZ Repair Right Upper Eyelid, External Approach (ICD-10-PCS; principal; 2016-10-08)
DX: I62.9 Nontraumatic intracranial hemorrhage, unspecified (principal); C18.9 Malignant neoplasm of colon, unspecified; R19.7 Diarrhea, unspecified; S01.111A Laceration without foreign body of right eyelid and periocular area, initial encounter; W19.XXXA Unspecified fall, initial encounter
CPT/HCPCS: 12011; 70450; 70496; 92507; 92523; 93005; 93306; 96360; 97162; 97166; 97530; 97535; 99285; G0378; J1953; J2405; Q9967